=== PATIENT | male | born 1970 | race Caucasian/White ===

== ENCOUNTER → 2021-03-13 09:09 | Outpatient (CLI) | payer OTHER, SELFPAY ==
--- NOTE | ~2021-03-13 | XR_ITS ---
XR shoulder LT min 2V 03/13/2021 09:44 Indication: Left shoulder pain Procedure: 4 views left shoulder Comparison: No prior studies for comparison. Findings: There is mild polyarticular osteoarthritis of the left shoulder. No acute fracture or traum atic malalignment. No focal soft tissue abnormality. Visualized lung parenchyma is unremarkable. Impression: 1: Mild polyarticular osteoarthritis of the left shoulder. Reviewed, dictated and finalized at location A. Impression: 1: Mild polyarticular osteoarthritis of the left shoulder.
== END ==
PROVIDERS: PCP Internal Medicine; Visit Provider Internal Medicine
DX: M25.512 Pain in left shoulder (principal); M19.012 Primary osteoarthritis, left shoulder
CPT/HCPCS: 73030

== ENCOUNTER → 2021-08-25 12:36 | Outpatient (CLI) | payer BC, SELFPAY ==
--- NOTE | ~2021-08-25 | XR_ITS ---
EXAMINATION: XR wrist LT min 3V DATE: 08/25/2021 13:52 INDICATION: Intermittent left wrist pain post fall 2011 days prior. TECHNIQUE: Posteroanterior, ulnar deviation, oblique, and lateral views of the left wrist were obtain ed. COMPARISON: none FINDINGS: Negligible impaction of a nondisplaced fracture of the radial aspect of the distal radius with intra- articular fracture line extending between the lunate and scaphoid fossae. There is less than 1 mm fra cture gap and incongruity at the articular cortex. No other fractures identified. Minimal osteoarthri tis at the wrist, triscaphe and several carpal metacarpal joints. IMPRESSION: 1. Nondisplaced intra-articular fracture involving the radial side of the distal radius. Reviewed, dictated and finalized at location A. IMPRESSION: 1. Nondisplaced intra-articular fracture involving the radial side of the dista l radius.
== END ==
PROVIDERS: PCP Internal Medicine; Visit Provider Internal Medicine
DX: M25.532 Pain in left wrist (principal); S52.572A Other intraarticular fracture of lower end of left radius, initial encounter for closed fracture
CPT/HCPCS: 73110

== ENCOUNTER 2022-10-19 09:54 | Emergency (ER) | payer BC, SELFPAY ==
--- NOTE | ~2022-10-19 | XR_ITS ---
EXAMINATION: XR chest 1V INDICATION: Weakness and headache TECHNIQUE: PA view of the chest is obtained. COMPARISON: None available FINDINGS: The lungs are free of acute opacities. No pleural effusion or pneumothorax. The cardiomedia stinal silhouette is normal. IMPRESSION: 1. No acute cardiopulmonary abnormality. Reviewed, dictated and finalized at location A. STANT ATTORNEY GENERAL
--- NOTE | ~2022-10-19 | CT_ITS ---
Non-contrast Head CT History: Headache Technique: Axial non-contrast imaging of the brain was performed. Dose reduction technique was used on this scan by utilizing automated exposure control and iterative reconstruction technique. The dose -length product (DLP) was 605.33 mGy-cm. Findings: There is no evidence of intracranial hemorrhage, mass lesion, or acute infarct. Brain par enchyma appears normal. The ventricles and subarachnoid spaces are normal in size. The calvarium ap pears normal. The visualized paranasal sinuses and mastoid air cells are clear. Impression: No significant abnormality seen. Reviewed, dictated and finalized at location [] MIC INTERPRETER Impression: No significant abnormality seen.
[2022-10-19 09:59] VITALS: BP 136/81; PULSE 87; RESP 14; TEMP 36.9; O2SAT 98
--- NOTE | 2022-10-19 09:59 | ECG_ITS ---
Measurements Intervals [place] Rate: 88 P: 43 IA: 151 QRS: 7 QRSD: 97 T: 41 QT: 367 QTc: 446 Interpretive Statements SINUS RHYTHM LOW QRS VOLTAGE IN PRECORDIAL LEADS [QRS DEFLECTION < 1.0 mV IN CHEST LEADS] INCOMPLETE RIGHT BUNDLE BRANCH BLOCK NO PREVIOUS ECG AVAILABLE FOR COMPARISON Electronically Signed On 10-19-2022 13:22:54 [employer] by David Mckay M.D.
[2022-10-19 10:25] LABS: Basophils Absolute Auto 0.1 K/mm3 (0.0-0.1); Eosinophils Absolute Auto 0.1 K/mm3 (0-0.3); Eosinophils Percent Auto 2.3 % (0-4.4); Hematocrit 41.1 % (42.0-52.0); Immature Granulocyte Absolute 0.01 K/mm3 (0.00-0.031); Immature Granulocyte Percent A 0.2 % (0-0.5); Lymphocytes Percent Auto 29.3 % (18.3-44.2); Mean Corpuscular HGB Conc 34.1 g/dl (32-36); Mean Corpuscular Hemoglobin 30.3 pg (26-34); Mean Platelet Volume 11.2 fl (7.4-10.4); Monocytes Absolute Auto 0.6 K/mm3 (0.1-0.6); Monocytes Percent Auto 9.3 % (2.6-8.5); Neutrophils Absolute Auto 3.6 K/mm3 (1.3-6.7); Neutrophils Percent Auto 57.9 % (45.5-73.1); Platelet Count Result 179 k/mm3 (150-375); Red Blood Count 4.62 M/mm3 (4.6-6.20); Red Cell Distribution Width 13.3 % (11.5-14.5); White Blood Count 6.1 K/mm3 (4.5-10.0)
[2022-10-19 10:34] VITALS: PULSE 85
[2022-10-19 10:36] LABS: Alanine Aminotransferase 32 U/L (6-50); Albumin Level 5.1 g/dL (3.5-5.1); Alkaline Phosphatase 59 U/L (38-126); Anion Gap 8 mmol/L (8-16); Aspartate Amino Transferase 27 U/L (17-59); Bilirubin,Total 0.4 mg/dL (0.2-1.3); Blood Urea Nitrogen 15 mg/dL (9-20); Calcium 9.7 mg/dL (8.4-10.2); Carbon Dioxide 25 mmol/L (22-30); Chloride 103 mmol/L (98-107); Estimated CRCL calculation 111 ml/min; Estimated Glomerular Filt Rate > 60; Glucose 110 mg/dL (65-110); Potassium 4.5 mmol/L (3.4-5.0); Sodium 136 mmol/L (137-145)
[2022-10-19 10:38] LABS: Prothrombin Time 12.4 Seconds (11.1-14.7)
[2022-10-19 10:39] LABS: Partial Thromboplastin Time 27.7 SECONDS (22.3-36.8)
--- NOTE | 2022-10-19 10:43 | PC.NURSE ---
Pt reports that he was having sex when his symptoms began.
[2022-10-19 10:48] LABS: Troponin I < 0.012 ng/mL (0.000-0.034)
[2022-10-19 11:58] VITALS: BP 135/94; PULSE 85; RESP 14; O2SAT 100
--- NOTE | 2022-10-19 12:00 | ED.GENADULT ---
HPI - General Adult General Chief complaint: Neuro Symptoms/Deficit Stated complaint: stroke like symptoms Time Seen by Provider: 10/19/22 11:15 History of Present Illness HPI narrative: 52-year-old male presented the emergency department for evaluation of intense headache that started during sexual activity. Patient states at 9 AM he was being intimate with his when he had onset of an intense headache that lasted for minutes. Patient states that the headache did begin to resolve and he has only a minor headache at this time. Patient is unsure if he had any chest pain or shortness of breath. Patient does report he has a history of high cholesterol. Patient did have a cardiac work-up in August that was negative. This occurred at [facility]. Related Data Allergies Allergy/AdvReac Type Severity Reaction Status Date / Time No Known Allergies Allergy Verified 10/19/22 10:44 Review of Systems Review of Systems: CONSTITUTIONAL: Denies fever, chills, or sweats. EYES: Denies visual changes, redness, or discharge. ENT: Denies rhinorrhea, congestion, sore throat, or otalgia. CARDIOVASCULAR: Denies chest pain, palpitations, or edema. RESPIRATORY: Denies cough or dyspnea. GASTROINTESTINAL: Denies abdominal pain, nausea, vomiting, or diarrhea. GENITOURINARY: Denies dysuria or hematuria. SKIN: Denies rash or itching. MUSCULOSKELETAL: Denies back pain, joint pain, or myalgia. NEUROLOGIC: Headache Exam Narrative: APPEARANCE: Well appearing, no pain, no distress, well-nourished. HEAD: normocephalic, atraumatic. EYES: PERRLA/EOMI, conjunctivae clear. NOSE: Normal no drainage NECK: Supple. No adenopathy, no masses. RESPIRATORY: Airway patent, respirations nonlabored. Clear to auscultation bilaterally, no rales, rhonchi, wheezing. CARDIOVASCULAR: Regular rate and rhythm without murmurs rubs or gallops. ABDOMINAL: Soft, nontender, nondistended, normal bowel sounds MUSCULOSKELETAL: Moves all extremities. Strength/ROM intact, No edema, No calf tenderness. NEURO: Alert. Cranial nerves II through XII intact. Grossly intact SKIN: Warm, dry. Normal Color Course Course Emergency Course: Patient reports that his headache is resolved. Patient denies any focal numbness or weakness. Patient had a normal neuro exam with no discoordination numbness or weakness. Patient was educated on the results of the work-up and was comfortable to plan for discharge and close follow-up. Vital Signs Vital signs: Vital Signs Temperature 98.4 F 10/19/22 09:59 Pulse Rate 87 10/19/22 09:59 Respiratory Rate 14 10/19/22 09:59 Blood Pressure 136/81 10/19/22 09:59 Pulse Oximetry 98 10/19/22 09:59 Oxygen Delivery Room Air 10/19/22 09:59 Temperature 98.4 F 10/19/22 09:59 Pulse Rate 90 10/19/22 13:43 Respiratory Rate 14 10/19/22 13:43 Blood Pressure 125/78 10/19/22 13:43 Pulse Oximetry 98 10/19/22 13:43 Oxygen Delivery Room Air 10/19/22 09:59 Medical Decision Making Vital Signs Vital Signs: Vital Signs Temperature 98.4 F 10/19/22 09:59 Pulse Rate 87 10/19/22 09:59 Respiratory Rate 14 10/19/22 09:59 Blood Pressure 136/81 10/19/22 09:59 Pulse Oximetry 98 10/19/22 09:59 Oxygen Delivery Room Air 10/19/22 09:59 Temperature 98.4 F 10/19/22 09:59 Pulse Rate 90 10/19/22 13:43 Respiratory Rate 14 10/19/22 13:43 Blood Pressure 125/78 10/19/22 13:43 Pulse Oximetry 98 10/19/22 13:43 Oxygen Delivery Room Air 10/19/22 09:59 Lab Data Lab results reviewed: Yes I reviewed the patient's lab results. 10/19/22 10:18 10/19/22 10:18 Labs: Lab Results 10/19/22 10/19/22 10/19/22 Range/Units 10:18 10:18 10:18 WBC 6.1 (4.5-10.0) K/mm3 RBC 4.62 (4.6-6.20) M/mm3 Hgb 14.0 (14.0-18.0) g/dL Hct 41.1 L (42.0-52.0) % MCV 89.0 (80-100) fl MCH 30.3 (26-34) pg MCHC 34.1 (32-36) g/dl RDW 13.3 (11.5-14.5) % Plt
[2022-10-19 12:14] LABS: Influenza A QL RT-PCR Negative (Negative); Influenza B QL RT-PCR Negative (Negative); RSV RNA, RT-PCR Negative (Negative); SARS-CoV-2 RNA PCR Negative
[2022-10-19 12:31] VITALS: BP 131/92; PULSE 87; RESP 17; O2SAT 98
[2022-10-19 13:01] VITALS: BP 137/88; PULSE 89; RESP 17; O2SAT 97
[2022-10-19 13:43] VITALS: BP 125/78; PULSE 90; RESP 14; O2SAT 98
== END 2022-10-19 13:44 | disposition home or self-care (01) ==
PROVIDERS: Emergency Provider Emergency Medicine; PCP Internal Medicine
DX: R51.9 Headache, unspecified (principal); Z20.822 Contact with and (suspected) exposure to COVID-19; I45.10 Unspecified right bundle-branch block
CPT/HCPCS: 36415; 70450; 71045; 80053; 84484; 85025; 85610; 85730; 87637; 93005; 99284

== ENCOUNTER 2023-04-26 20:36 | Emergency (ER) | payer BC, SELFPAY ==
--- NOTE | ~2023-04-26 | XR_ITS ---
Supine and upright views of the abdomen Clinical history: 8 mm proximal left ureteral stone Findings: Bowel gas pattern is nonspecific. No evidence for obstruction or free air. 8 mm stone prese nt at the proximal to mid left ureter with mild left hydronephrosis. And probable additional bilatera l nonobstructing renal stones. Osseous structures are intact. Impression: 8 mm stone at the proximal to mid left ureter with mild left hydronephrosis. Additional probable small bilateral nonobstructing renal stones. Reviewed, dictated and finalized at location M. Impression: 8 mm stone at the proximal to mid left ureter with mild left hydronephrosis. Additional probable small bilateral nonobstructing renal stones.
--- NOTE | ~2023-04-26 | CT_ITS ---
EXAMINATION: CT abdomen pelvis w con DATE: 04/26/2023 22:13 INDICATION: diffuse upper abd pain, N/V TECHNIQUE: Computed tomography (CT) of the abdomen and pelvis was performed with 100 mL Omnipaque-350 intravenous contrast. Automated exposure control and iterative reconstruction technique were employe d. The dose-length product was 1156.87 mGy-cm. COMPARISON: None. FINDINGS: Lower thorax: Calcified peripheral granuloma in the left lower lobe. Liver: Enlarged. Diffusely fatty infiltrated. Biliary/Gallbladder: Gallbladder is dilated. No gallstones detected. No bile duct dilation. Pancreas: No mass or duct dilation. Spleen: Normal. Adrenals:No mass. Kidneys: Delayed left nephrogram with mild perinephric stranding. Mild left pelviectasis and caliecta sis. 8 mm stone in the proximal left ureter. Multiple additional nonobstructing calculi bilaterally. Multiple right subcentimeter renal hypodensities, too small to characterize but most likely represent cysts. GI tract: Mild distal esophageal and gastric wall edema. No small or large bowel dilation. Normal marco a endix. Mesentery/Peritoneum: No ascites, mass, or free air. Retroperitoneum: No mass. Pelvis: Moderate bladder wall thickening. Prostatomegaly. Soft Tissues: Uncomplicated fat-containing right inguinal hernia. Bones: No acute osseous finding. IMPRESSION: 1. Mild esophagitis/gastritis. 2. Gallbladder hydrops, presumably secondary to fasting given the absence of cholelithiasis, inflamma tory change, or bile duct dilation. 3. 8 mm stone in the proximal left ureter causing mild obstructive uropathy. 4. Urinary bladder wall thickening, possibly secondary to outlet compromise from prostatomegaly or cy stitis. Reviewed, dictated and finalized at location K. IMPRESSION: 1. Mild esophagitis/gastritis. 2. Gallbladder hydrops, presumably secondary to fasting given the absence of ch olelithiasis, inflammatory change, or bile duct dilation. 3. 8 mm stone in the proximal left ureter causing mild obstructive uropathy. 4. Urinary bladder wall thickening, possibly secondary to outlet compromise fro m prostatomegaly or cystitis.
[2023-04-26 20:42] VITALS: BP 134/82; PULSE 91; RESP 20; TEMP 36.4; O2SAT 98
[2023-04-26 21:14] LABS: Basophils Absolute Auto 0.1 K/mm3 (0.0-0.1); Basophils Percent Auto 0.5 % (0.2-1.2); Eosinophils Absolute Auto 0.1 K/mm3 (0-0.3); Eosinophils Percent Auto 0.4 % (0-4.4); Hematocrit 40.5 % (42.0-52.0); Hemoglobin 13.4 g/dL (14.0-18.0); Immature Granulocyte Absolute 0.03 K/mm3 (0.00-0.031); Immature Granulocyte Percent A 0.3 % (0-0.5); Lymphocytes Absolute Auto 0.94 K/mm3 (0.9-3.2); Lymphocytes Percent Auto 8.5 % (18.3-44.2); Mean Corpuscular HGB Conc 33.1 g/dl (32-36); Mean Corpuscular Hemoglobin 29.8 pg (26-34); Mean Corpuscular Volume 90.2 fl (80-100); Mean Platelet Volume 11.8 fl (7.4-10.4); Monocytes Absolute Auto 0.8 K/mm3 (0.1-0.6); Neutrophils Absolute Auto 9.3 K/mm3 (1.3-6.7); Neutrophils Percent Auto 83.3 % (45.5-73.1); Platelet Count Result 174 k/mm3 (150-375); Red Blood Count 4.49 M/mm3 (4.6-6.20); Red Cell Distribution Width 13.4 % (11.5-14.5); White Blood Count 11.1 K/mm3 (4.5-10.0)
[2023-04-26 21:26] LABS: Alanine Aminotransferase 39 U/L (6-50); Albumin Level 5.1 g/dL (3.5-5.1); Alkaline Phosphatase 69 U/L (38-126); Anion Gap 9 mmol/L (8-16); Aspartate Amino Transferase 34 U/L (17-59); Bilirubin,Total 0.5 mg/dL (0.2-1.3); Blood Urea Nitrogen 18 mg/dL (9-20); Calcium 9.3 mg/dL (8.4-10.2); Carbon Dioxide 26 mmol/L (22-30); Chloride 105 mmol/L (98-107); Estimated CRCL calculation 60 ml/min; Estimated Glomerular Filt Rate 49; Glucose 162 mg/dL (65-110); Lipase 93 U/L (23-300); Potassium 4.4 mmol/L (3.4-5.0); Sodium 140 mmol/L (137-145)
[2023-04-26 21:46] LABS: Appearance Urine Clear (Clear); Bacteria Urine None Seen /hpf; Bilirubin Urine Negative (Negative); Blood Urine 3+ (Negative); Color Urine Yellow (Yellow); Glucose Urine UA Negative (Negative); Ketones Urine Negative (Negative); Leukocyte Esterase Ur Trace LEU/UL (Negative); Nitrate Urine Negative (Negative); Non Pathogenic Casts 0-2; Protein Urine Negative (Negative); RBC Urine >100 /hpf (0-2); Specific Grav Ur 1.019 (1.001-1.035); Squamous Epithelial Cell Urine None seen /hpf (Few); Urobilinogen Urine 0.2 mg/dL (<2.0); WBC Urine 0-5 /hpf; pH Urine 5.5 (5.0-9.0)
[2023-04-26 21:51] LABS: Add Urine Microscopic? YES
[2023-04-26] MEDS: ONDANSETRON INJ 4 MG/2 ML VIAL IV PUSH (22:02)
[2023-04-26] MEDS: MORPHINE SULFATE (*CRX) 4 MG/ML INJ IV PUSH (22:03)
[2023-04-26] MEDS: SODIUM CHLORIDE 0.9% IV 1,000 ML 999 ML IV CONT ×2 (22:06→22:37)
--- NOTE | 2023-04-26 22:16 | ED.ABDPAIN ---
HPI - Abdominal Pain General Chief Complaint: Abdominal Pain <IGNACIO English Last Filed: 04/27/23 00:51> Stated Complaint: abd pain <IGNACIO English Last Filed: 04/27/23 00:51> Time Seen by Provider: 04/26/23 21:04 <Christiana Villa PA-C - Last Filed: 04/27/23 00:51> Source: patient <IGNACIO English Last Filed: 04/27/23 00:51> Mode of arrival: ambulatory <IGNACIO English Last Filed: 04/27/23 00:51> Limitations: no limitations <IGNACIO English Last Filed: 04/27/23 00:51> History of Present Illness HPI narrative: Patient is a 53 y/o male who presents to ED with complaints of upper abdominal pain. Patient reports he was swimming in his pool today around 5 PM when he suddenly developed pain diffusely throughout his upper abdomen. The pain has been constant since then, slightly worse on the left side, unable to find a comfortable position. Pain initially radiated through to his left mid back, and now to his right mid back. He has had nausea and vomiting associated with the pain. Unable to keep anything down, unable to take anything for the pain. He also reports mild constipation over the last 3 days, stating he has only passed small amounts each day. Denies any rectal bleeding. Denies any fevers, urinary symptoms. Denies Hx kidney stones. <IGNACIO English Last Filed: 04/27/23 00:51> Related Data Home Medications: Home Medications Medication Instructions Recorded Confirmed aspirin 81 mg chewable tablet 81 mg PO DAILY 04/27/23 04/28/23 bupropion HCl 150 mg tablet,12 hr 150 mg PO BID 04/27/23 04/28/23 sustained-release escitalopram oxalate 10 mg tablet 10 mg PO HS 04/27/23 04/28/23 gemfibrozil 600 mg tablet 600 mg PO BID 04/27/23 04/28/23 multivitamin 1 tablet PO DAILY 04/27/23 04/28/23 omega 0-ptf-cqs-fish oil 1,000 mg 1 cap PO DAILY 04/27/23 04/28/23 (120 mg-180 mg) capsule (Fish Oil) sucralfate 1 gram tablet 1 g PO BID 04/27/23 04/28/23 <Christiana Villa PA-C - Last Filed: 04/27/23 00:51> Allergies/Adverse Reactions: Allergies Allergy/AdvReac Type Severity Reaction Status Date / Time No Known Allergies Allergy Verified 04/28/23 11:04 <Christiana Villa PA-C - Last Filed: 04/27/23 00:51> Review of Systems Review of Systems: CONSTITUTIONAL: Denies fever, chills, or sweats. CARDIOVASCULAR: Denies chest pain, palpitations, or edema. RESPIRATORY: Denies cough or dyspnea. GASTROINTESTINAL: See HPI. GENITOURINARY: Denies dysuria or hematuria. SKIN: Denies rash or itching. MUSCULOSKELETAL: See HPI. NEUROLOGIC: Denies tingling, numbness, or weakness. <Christiana Villa PA-C - Last Filed: 04/27/23 00:51> All systems reviewed & are unremarkable except as noted in HPI and below <IGNACIO English Last Filed: 04/27/23 00:51> [facility] Past Medical History Medical History: Medical History (Updated 04/28/23 @ 10:53 by Shakir Maddox MD) Hyperlipidemia Obesity DIANNE on CPAP <IGNACIO English Last Filed: 04/27/23 00:51> Social History Social History: Social History Smoking status: Never smoker Alcohol intake: current Alcohol use details: VERY RARE Substance use: never Substance use type: does not use Living arrangements: with family Spiritual care concerns: No <IGNACIO English Last Filed: 04/27/23 00:51> Exam Narrative: GENERAL: Uncomfortable appearing, obese with BMI of 33.4, non-toxic, in mild acute distress d/t pain. HEAD: Normocephalic, atraumatic. NECK: Supple. No adenopathy, no masses. RESPIRATORY: Airway patent, respirations nonlabored. Clear to auscultation bilaterally, no rales, rhonchi, wheezing. CARDIOVASCULAR: Regular rate and rhythm without murmurs, rubs, or gallops. Radial pulses 2+ and equal bilaterally. ABDOMINAL: Soft, diffuse upper abdominal tenderness to palpation, worse thr
[2023-04-26 23:10] VITALS: BP 118/74; PULSE 89; RESP 16; O2SAT 97
[2023-04-27] MEDS: TAMSULOSIN HCL 0.4 MG CAPSULE PO (00:49)
[2023-04-27] MEDS: HYDROcodone/acetaminophen (*CRX) 5-325 MG TABLET 1 TAB PO (00:49)
[2023-04-27] MEDS: FAMOTIDINE 20 MG/2 ML VIAL IV PUSH (00:49)
== END 2023-04-27 01:00 | disposition home or self-care (01) ==
PROVIDERS: Emergency Medicine; Emergency Provider Physician Assistant; PCP Internal Medicine
DX: N13.2 Hydronephrosis with renal and ureteral calculous obstruction (principal); N28.9 Disorder of kidney and ureter, unspecified; E78.5 Hyperlipidemia, unspecified; G47.33 Obstructive sleep apnea (adult) (pediatric); E66.9 Obesity, unspecified; Z68.33 Body mass index [BMI] 33.0-33.9, adult; Z79.82 Long term (current) use of aspirin; K29.70 Gastritis, unspecified, without bleeding; K20.90 Esophagitis, unspecified without bleeding; R93.41 Abnormal radiologic findings on diagnostic imaging of renal pelvis, ureter, or bladder
CPT/HCPCS: 36415; 74018; 74177; 80053; 81001; 83690; 85025; 96361; 96374; 96375; 99284; A9270; J2270; J2405; J7030; Q9967

== ENCOUNTER 2023-04-28 00:40 | Day surgery (SDC) | payer BC, SELFPAY ==
[2023-04-27 15:36] VITALS: BMI 34.0
--- NOTE | 2023-04-27 15:44 | PC.NURSE ---
Report to the Outpatient Waiting Room, entrance under the green pavilion located off [facility], at time 1030 on date 04/28/23. Planned Procedure Time: 1230. Time changes happen often and if your time is changed the preop area will call you the afternoon before. - You and your visitor will be asked to self-screen and do not enter if you have any COVID symptoms. - A mask is optional within the hospital at this time. Patients may have clear liquids (water, carbonated beverages, clear teas, apple juice) until 3 hours prior to surgery with a maximum of 20 ounces. - No food from midnight until time of surgery Take the following medications with a SIP of water the morning of surgery: BUPROPION, PAIN PILL IF NEEDED DO NOT STOP ANY OF YOUR OTHER PRESCRIPTION MEDICATIONS PRIOR TO SURGERY?EXCEPT THE FOLLOWING Medications to discontinue per physician: ASPIRIN, VITAMINS/SUPPLEMENTS Date to take last dose: NO MORE UNTIL AFTER SURGERY Please no make-up, nail hungarian, hairspray, perfume, deodorant, or body powder the day of surgery. No jewelry (including any body piercings) or valuables the day of surgery, leave them at home. Please take a shower or bath the night before, or the morning of, surgery with an antibacterial soap. Wear comfortable, loose fitting clothing. - Jewelry must be removed prior to entering the operating room. Rings and piercings that are not removed may be cut off. - The hospital will not accept responsibility for valuables. - Please leave all valuables, including medications, at home the day of surgery. If you are going home after surgery, a licensed haul driver must drive you home. - NO public transportation without another adult if you receive anesthesia. - We recommend that an adult stay with you for 24 hours following discharge. - We also recommend that you do not drive, make important decision, drink alcoholic beverages, or take any drugs that were not prescribed by your health care provider for at least 24 hours after your discharge time. Follow any additional instructions given to you from your surgeon. If you or anyone in your household have experienced Covid symptoms in the past week, please notify your surgeon or the nurse liaison at the phone number below for possible testing. Telephone instructions given to PT - SHEILA GUERRERO and asked if any additional questions and then verbalized understanding. Patient advised to call surgeon office or pre surgery nurse liaison [phone] if any additional questions.
[2023-04-28] VITALS (9 sets, daily range): BP systolic 105–138; BP diastolic 67–88; PULSE 67–77; RESP 12–18; TEMP 36.8; O2SAT 96–100
--- NOTE | ~2023-04-28 | XR_ITS ---
EXAMINATION: XR retrograde pyelo w/stent LT DATE: 04/28/2023 15:57 INDICATION: Left internal ureteral stent placement TECHNIQUE: Fluoroscopic images from a left internal ureteral stent placement are submitted for review . 18 seconds of fluoroscopy time. FINDINGS: There is a left double-J internal ureteral stent projecting in expected position, with proximal [place] loop at the level of the renal pelvis and distal loop in the pelvis within the bladder lumen. IMPRESSION: 1. Left internal ureteral stent placement. Please refer to real-time procedural findings for detail s. Reviewed, dictated and finalized at location [] IMPRESSION: 1. Left internal ureteral stent placement. Please refer to real-time procedur al findings for details.
--- NOTE | 2023-04-28 10:53 | WPDANESEPPF ---
Anes - Initial Pre Proc Eval Procedure: Operation Date: 04/28/23 12:30 Proposed Procedures p Cystoscopy, Left Ureteroscopy, Left Retrograde Pyelogram, Possible Left Stone Extraction, Possible Left Stent Placcement, Possible Holmium Laser Procedure - Calvin Cosme MD Date/Time: 04/28/23 10:53 Surgeon: Calvin Comse MD Pre Op Diagnosis: left ureteral stone Patient Data Age: 53 Gender: M Height: 1.75 m Weight: 104.35 kg Allergies Allergy/AdvReac Type Severity Reaction Status Date / Time No Known Allergies Allergy Verified 04/27/23 15:33 Home Medications Medication Instructions Recorded Confirmed Type aspirin 81 mg chewable tablet 81 mg PO DAILY 04/27/23 04/27/23 History bupropion HCl 150 mg tablet,12 hr 150 mg PO BID 04/27/23 04/27/23 History sustained-release escitalopram oxalate 10 mg tablet 10 mg PO HS 04/27/23 04/27/23 History gemfibrozil 600 mg tablet 600 mg PO BID 04/27/23 04/27/23 History hydrocodone 5 mg-acetaminophen 325 1 tablet PO Q6H PRN pain #15 tabs 04/27/23 04/27/23 Rx mg tablet multivitamin 1 tablet PO DAILY 04/27/23 04/27/23 History omega 7-yve-pht-fish oil 1,000 mg 1 cap PO DAILY 04/27/23 04/27/23 History (120 mg-180 mg) capsule (Fish Oil) ondansetron 4 mg disintegrating 4 mg PO Q8H PRN nausea and 04/27/23 04/27/23 Rx tablet vomiting #20 tabs sucralfate 1 gram tablet 1 g PO BID 04/27/23 04/27/23 History tamsulosin 0.4 mg capsule (Flomax) 0.4 mg PO DAILY #7 caps 04/27/23 04/27/23 Rx Patient hx anesthesia problems: none Family hx anesthesia problems: none Results Review: All pre-operative results and documents have been reviewed as part of the pre-operative evaluation. [facility] Past Medical History Medical History (Updated 04/28/23 @ 10:53 by Shakir Maddox MD) Hyperlipidemia Obesity DIANNE on CPAP Social History Social History Smoking status: Never smoker Alcohol intake: current Alcohol use details: VERY RARE Substance use: never Substance use type: does not use Living arrangements: with family Spiritual care concerns: No Anes - Eval Final PreProcedure Day of Procedure 04/28/23 10:53 Patient weight: obese Heart: regular rate and rhythm Lungs: clear to auscultation and normal air movement Airway: Mallampati scale class II Neurological: alert and oriented Last oral intake: >/= 8 hours ASA classification: III Emergent: no Anesthetic plan: proceed Anesthesia type and monitoring: general LMA Results Review: All pre-operative results and documents have been reviewed as part of the pre-operative evaluation. Informed Consent: The patient's anesthetic plan and its attendant risks and benefits were discussed with the patient/family/POA. Questions were solicited and answers provided to the satisfaction of the patient/family/POA.
[2023-04-28] MEDS: LACTATED RINGERS 1,000 ML 30 ML IV CONT ×2 (10:59→16:20)
--- NOTE | 2023-04-28 12:57 | SUR.PREOP ---
1200 PT INFORMED OF SURGERY TIME DELAY, DENIES NEEDS AT THIS TIME. 1250 PT UPDATED ABOUT SURGERY TIME DELAY, DENIES NEEDS
--- NOTE | 2023-04-28 15:43 | P.OP_ITS ---
Procedure Note - Detailed Date of Procedure 04/28/23 Pre-op Diagnosis left ureteral stone Post-op Diagnosis Same Procedure Performed Cystoscopy, left retrograde pyelogram, left ureteroscopy with holmium laser, left ureteral stent placement 4.8 Canadian contour Surgeon Calvin Cosme MD Anesthesia General Description of Procedure Patient is taken to the operative suite correctly identified. Once anesthesia was obtained was placed in dorsal lithotomy position and prepped and draped usual sterile fashion. Twenty-two Canadian scope was inserted the bladder. Does have an enlarged prostate with a median lobe. The bladder itself has 1+ trabeculation. The left ureteral orifice was cannulated with a guidewire. Ureteral access sheath was placed. Mini flexible ureteral scope inserted into the ureter. It was noted that he was very tight just distal to the stone. I placed the superstiff wire through the flexible scope in and passively was able to the get the flexible scope to enter proximally. The stone was visualized. It then flushed into the kidney. Using a 200 micron fiber we dusted the stone into small fragments. There were too small to retrieve. Pyelogram was then performed. 4.8 Canadian contour stent was then back loaded over cystoscope in the proximal end was in the renal pelvis distal in the bladder. Bladder was drained. 2% viscous lidocaine was inserted urethra patient is taken recovery stable condition. He will follow-up in 10-12 days with a KUB and most likely cysto with stent removal at that time. We discharged home with antibiotics and pain meds were sent to his pharmacy. This completes dictation please send a copy to my office. Drains Yes Packing No Pathology None sent Complications No immediate complications Condition Stable Disposition PACU
== END 2023-04-28 17:51 | disposition home or self-care (01) ==
PROVIDERS: PCP Internal Medicine; Visit Provider Urology
PROC: (CPT 52352; principal; 2023-04-28 12:30)
DX: N20.1 Calculus of ureter (principal); E78.5 Hyperlipidemia, unspecified; G47.33 Obstructive sleep apnea (adult) (pediatric); E66.9 Obesity, unspecified; Z68.34 Body mass index [BMI] 34.0-34.9, adult; Z79.82 Long term (current) use of aspirin
CPT/HCPCS: 52356; 74420; C1769; C1894; C2617; J1100; J2250; J2405; J2704; J3010; J7120

== ENCOUNTER 2023-05-11 09:12 | Outpatient (CLI) | payer BC, SELFPAY ==
--- NOTE | ~2023-05-11 | XR_ITS ---
Supine and upright views of the abdomen Clinical history: Left ureteral stone Findings: Bowel gas pattern is nonspecific. No evidence for obstruction or free air. Left ureteral st ent is in place. Left lower pole renal stones are present. No definite stone along the course of the stent. Osseous structures are intact. Impression: Left lower pole renal stones. Left ureteral stent. No definite ureteral stones seen on this exam. Reviewed, dictated and finalized at [facility]. Impression: Left lower pole renal stones. Left ureteral stent. No definite ureteral stones seen on this exam.
== END 2023-05-11 09:13 | disposition home or self-care (01) ==
PROVIDERS: PCP Internal Medicine; Visit Provider Urology
DX: N20.1 Calculus of ureter (principal)
CPT/HCPCS: 74018

== ENCOUNTER 2024-06-06 12:18 | Outpatient (CLI) | payer BC, SELFPAY ==
--- NOTE | ~2024-06-06 | XR_ITS ---
Lumbosacral Spine:, Oblique, and lateral views, with neutral, flexion, extension positioning Clinical History: Pain Findings: The normal lordotic curve is maintained. No fracture identified. There is 4 mm anterolisthe sis of L4 over L5.. There is severe facet arthropathy from L3 through S1. There is moderate facet art hropathy at the upper lumbar spine. There are minimal degenerative disc changes. There are anterior o steophytes, compatible with DISH, especially from T11 through L2. No instability evident on flexion o r extension. The sacroiliac joints are normally outlined. Impression: 4 mm anterolisthesis of L4 over L5. No definite instability seen. Degenerative spondylosis, as above. Reviewed, dictated and finalized at location M. Impression: 4 mm anterolisthesis of L4 over L5. No definite instability seen. Degenerative spondylosis, as above.
== END 2024-06-06 12:19 ==
DX: M47.896 Other spondylosis, lumbar region (principal)
CPT/HCPCS: 72114

== ENCOUNTER 2025-01-14 14:00 | Outpatient (RCR) | payer BC, OTHER, SELFPAY ==
--- NOTE | 2024-11-20 11:03 | OPREHPOC ---
Outpatient Therapy Plan of Care This is a Multidisciplinary Plan of Care that may contain components documented by all disciplines (PT, OT, and ST.) PT Problem 1 PT Problem #1 Knowledge Deficit PT Goal 1 Goal / Goal Update *indep with HEP Target Visit 8 PT Goal 2 Goal / Goal Update *correct body mechanics with lifting floor/waist height Target Visit 8 PT Problem 2 PT Problem #2 Pain PT Goal 1 Goal / Goal Update * pt report pain at worst of 5/10 Target Visit 8 PT Problem 3 PT Problem #3 Impaired Range of Motion PT Goal 1 Goal / Goal Update increase flexibility of R and L anterior hip/ quads to decrease pull on lumbar spine and hip: prone knee flexion bilateral to 120' Target Visit 8 PT Problem 4 PT Problem #4 Impaired Strength PT Goal 1 Goal / Goal Update *improve hip extension and abdominal strength, to improve stability and support to lumbar spine: pt able to perform 20 reps of mat and standing exercises with good stability Target Visit 8
--- NOTE | 2024-11-20 11:03 | PTOPEVAL1 ---
Assessment and note entered by Marga Gilmore, PT Evaluation Information Assessment Status Evaluation ICD-10 Condition Codes (PT) Pain in low back M54.50 Onset about year Subjective Information chronic back pain, have had since 19 years old; have been to chiropractor in the past--adjustments and trigger gun, manual traction with table that drops have had 1 injection in back and it helped; scheduled for another in 2 weeks. 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, not doing any exercises for his back Reported Pain Level Pain Score Self Report Additional Pain Score Comments pain range in the past week 0- 7/10; bilateral low back--extreme pain, constant achy, like nerves being crushed; since had the injection, have been to 0/10 for first time in a long time; walking is OK standing still, carrying something, pull weeds, bending forward-- increases pain decrease pain: rest, ibuprofen, muscle relaxer use heat when pain is really bad/ ice makes worse sleeping is OK, sleep on his sides, and sometimes have to roll over due to hip hurting Assessment PT Clinical Summary Reinier has the diagnosis of back pain. He reports chronic issues with back pain since he was in his 20's. Self assessment with Oswestry rating of 28% limitation in activity level. Walking and sleeping are OK. Standing still increases his pain. He works from home, doing computer work and does not do any fitness exercises or back exercises. With the evaluation: standing trunk extension and supine R hip ER increase his pain; weakness over R and L hip extension, with tightness of bilateral anterior hip/quad muscle. Skilled PT services are indicated for modalities to decrease pain, therapeutic exercises to increase strength and flexibility with education for HEP and work station set up and body mechanics . Plan of Care Interventions Electrical Stimulation,Hot Pack/Cold Pack,Manual Therapy,Mechanical Traction,Neuro Re-education, Patient/Caregiver Education,Therapeutic Activities ,Therapeutic Exercise,Ultrasound,Other Other Interventions taping PT Services Indicated Yes Treatment Frequency and 1-2x/wk for 8 visits Duration These treatments will address the objective and functional deficits as defined above. The patient will be advanced safely and appropriately in order for the patient to progress towards his/her prior level of function. Additional exercises will be introduced and as well as a comprehensive home exercise program upon discharge, if needed, ?to ensure carryover of functional gains achieved in the clinic. This treatment plan has been reviewed and agreement upon by the patient.
--- NOTE | 2024-12-13 13:30 | PCPTNOTE ---
Pt canceled appt today due to illness.
--- NOTE | 2024-12-19 13:30 | OPREHPOC ---
Outpatient Therapy Plan of Care This is a Multidisciplinary Plan of Care that may contain components documented by all disciplines (PT, OT, and ST.) PT Problem 1 PT Problem #1 Knowledge Deficit PT Goal 1 Goal / Goal Update *indep with HEP 12-19-24 progress goal met; continue to progress HEP and education Target Visit 14 PT Goal 2 Goal / Goal Update *correct body mechanics with lifting floor/waist height 12-19-24 progress goal met- Target Visit 8 Progress Met PT Problem 2 PT Problem #2 Pain PT Goal 1 Goal / Goal Update * pt report pain at worst of 5/10 12-19-24 progress goal not met, 6/10 at worst continue towards goal Target Visit 14 PT Problem 3 PT Problem #3 Impaired Range of Motion PT Goal 1 Goal / Goal Update increase flexibility of R and L anterior hip/ quads to decrease pull on lumbar spine and hip: prone knee flexion bilateral to 120' 12-19-24 progress goal met Target Visit 8 Progress Met PT Problem 4 PT Problem #4 Impaired Strength PT Goal 1 Goal / Goal Update *improve hip extension and abdominal strength, to improve stability and support to lumbar spine: pt able to perform 20 reps of mat and standing exercises with good stability 12-19-24 progress goal not met, continue towards Target Visit 14
--- NOTE | 2024-12-19 13:30 | PTOPPROG ---
Assessment and note entered by Marga Gilmore, PT Assessment Status Progress ICD-10 Condition Codes (PT) Pain in low back M54.50 Onset about year Subjective Information back injection that received in November helped; is going to the chiropractor 1x/wk for back- massage, mobilization by dropping the table and massage gun; have been busy at home with project of moving into a new detached garage and the old garage area is being redone into a living space; with working on the computer, try to get up at least every hour to move and stretch; want more therapy to get stronger and get my back a little better. Assessment PT Clinical Summary Reinier has received a total of 8 PT sessions. Compared to the initial evaluation: pain rating from 0-7/10 to 0-6/10; self assessment with Oswestry rating from 28% to 32% limitation in activity level; increase trunk and hip strength with mat and standing exercises; maximum bilateral UE box lift to 47# from floor/waist height, with education to avoid trunk rotation with lift; increase flexibility of anterior hip/quad muscles with prone knee flexion bilateral from 105' to 120' education for HEP and pain management. The goals were partially met. Continue PT treatment. Plan of Care Interventions Electrical Stimulation,Hot Pack/Cold Pack,Manual Therapy,Mechanical Traction,Neuro Re-education, Patient/Caregiver Education,Therapeutic Activities ,Therapeutic Exercise,Ultrasound,Other Other Interventions taping PT Services Indicated Yes Treatment Frequency and 1-2x/wk for 6 visits Duration These treatments will address the objective and functional deficits as defined above. The patient will be advanced safely and appropriately in order for the patient to progress towards his/her prior level of function. Additional exercises will be introduced and as well as a comprehensive home exercise program upon discharge, if needed, ?to ensure carryover of functional gains achieved in the clinic. This treatment plan has been reviewed and agreement upon by the patient.
--- NOTE | 2024-12-30 13:47 | PCPTNOTE ---
Canceled not feeling well, ill. AKS
--- NOTE | 2025-01-15 10:13 | PTOPDC ---
Assessment and note entered by Marga Gilmore, PT Assessment Status Discharge - Pt Not Present ICD-10 Condition Codes (PT) Pain in low back M54.50 Onset about year Subjective Information at yesterday's treatment session, he reported he wanted to be done with therapy--doing better and has all of his home exercises. Reported Pain Level Pain Score 1: Self Report Assessment PT Clinical Summary Reinier has received 13 PT sessions. At yesterday's treatment session, he wanted to be finished with therapy. Discharge PT. Pt has his HEP and education for pain control, body mechanics. The goals were not addressed. Plan of Care PT Services Indicated No
== END 2025-01-15 13:16 | disposition home or self-care (01) ==
LOC: ANHPT 14:00
DX: G89.29 Other chronic pain (principal); M47.816 Spondylosis without myelopathy or radiculopathy, lumbar region; M43.16 Spondylolisthesis, lumbar region; M48.10 Ankylosing hyperostosis [Forestier], site unspecified; M51.360 Other intervertebral disc degeneration, lumbar region with discogenic back pain only
CPT/HCPCS: 97012; 97014; 97110; 97112; 97140; 97161; 97530; G0283